=== PATIENT | female | born 1990 | race African-American/Black ===

== ENCOUNTER 2021-03-25 09:25 | Emergency (ER) | payer OTHER ==
[~2021-03-25] VITALS: Ht 165.1 cm; Wt 103.0 kg
[2021-03-25 11:31] LABS: ABSOLUTE NEUTROPHILS 2.1 thou/uL (1.4-8.2); BASOPHILS 0.4 % (0.0-2.0); EOSINOPHILS 1.2 % (0.0-3.0); HEMATOCRIT 39.2 % (37.0-47.0); HEMOGLOBIN 12.6 gm/dL (12.0-15.0); LYMPHOCYTES 27.9 % (24.0-44.0); MCH 28.5 pg (26.0-34.0); MCHC 32.1 g/dL (28.0-37.0); MCV 88.9 fL (80.0-100.0); PLATELET COUNT 272 thou/uL (150-400); POLYS 54.5 % (36.0-66.0); RDW 13.4 % (10.5-14.5); WBC 3.9 thou/uL (4.0-11.0)
[2021-03-25 11:44] LABS: CALCIUM 8.8 mg/dL (8.5-10.1); CREATININE 0.9 mg/dL (0.6-1.0); POTASSIUM 3.5 mmol/L (3.5-5.1)
[2021-03-25 11:50] LABS: ALBUMIN 3.4 g/dL (3.4-5.0); MAGNESIUM 1.9 mg/dL (1.8-2.4); TOTAL BILIRUBIN 0.5 mg/dL (0.2-1.0); TOTAL PROTEIN 7.1 g/dL (6.4-8.2)
[2021-03-25] MEDS ORDERED: ZOFRAN ODT4 MG PO (12:30)
[2021-03-25] MEDS ORDERED: DOXYCYCLINE 10100 MG PO (12:31)
[2021-03-25 13:18] VITALS: BP 112/79
--- NOTE | 2021-03-26 10:52 | EKG ---
[address] [place] [address] ELECTROCARDIOGRAM REPORT Name: LEONARDAJESSICA Room #: [facility] DAKOTA Rodriguez#: [id number] Admission: 03/25/21 Attend Phys: Discharge: 03/25/21 Date of : [birth year] Report #: [id number] [facility] ED Test Date: 2021-03-25 Test Time: 10:09:29 Pat Name: JESSICA BROWER Department: Room: Gender: F Lung Puller: : 1990 Requested By: Fred Machuca Order Number: [id number] MD: Prabhakar Rosario Measurements Intervals [place] Rate: 92 P: 52 AL: 160 QRS: 42 QRSD: 87 T: 13 QT: 332 QTc: 411 Interpretive Statements Sinus rhythm No previous ECG available for comparison Electronically Signed On 03-26-2021 10:51:48 ACTIVITY THERAPIST by Prabhakar Rosario [email or web address] <ELECTRONICALLY SIGNED> By: Prabhakar Rosario MD 03/26/21 1051 1009 1009 Prabhakar Rosario MD /EPI
== END 2021-03-25 13:27 | disposition home or self-care (01) ==
LOC: ER 09:25
PROVIDERS: Emergency Medicine
DX: R19.7 Diarrhea, unspecified (principal); Z20.822 Contact with and (suspected) exposure to COVID-19; R51.9 Headache, unspecified; J18.9 Pneumonia, unspecified organism; F17.210 Nicotine dependence, cigarettes, uncomplicated; Z86.16 Personal history of COVID-19